=== PATIENT | male | born 1955 | race Caucasian/White ===

== ENCOUNTER 2024-03-06 16:45 | Inpatient (IN) | payer MEDICARE, BC, SELFPAY ==
[2024-03-06] VITALS (8 sets, daily range): BP systolic 126–153; BP diastolic 75–93; BMI 37.6; BMI 34.6
--- NOTE | 2024-03-06 13:13 | ED.GENMED ---
History of Present Illness
<Sinai Campos MD, Resident - Last Filed: 03/07/24 19:39>
General
Chief Complaint: Headache
Source: patient and spouse
Exam Limitations: none
Time Seen by Provider: 03/06/24 12:29
Nursing documentation reviewed up to this point in time: agreed with
History of Present Illness
History of Present Illness:
68-year-old male with history of type II diabetes, hypercholesterolemia, hypertension, hypothyroidism presented today with left-sided headache x 3 days. 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
does often with no issues. He reports feeling nauseous and lightheaded unsteadiness and breaking out in a cold sweat. He then went to sit down for risk of fall and then had a nap. He woke up with a unilateral, 3/10 constant, dull ache in the left
temporal area/behind left eye. Headache has remained unchanged since onset.
No prior history or similar symptoms. He reports mild fatigue but denies neck pain/stiffness, visual changes, photophobia/phonophobia, fever, confusion, fall, loss of consciousness, trauma, chest pain, palpitations, shortness of breath, or urinary
symptoms.
Review of Systems
<Sinai Campos MD, Resident - Last Filed: 03/07/24 19:39>
Review of Systems
Constitutional: Reports fatigue; Denies fever, night sweats or chills
EENT: Reports other (no sialorrhea); Denies tearing or runny nose
Respiratory: Denies trouble breathing
Cardiac: Denies chest pain, diaphoresis, palpitations or syncope
ABD/GI: Denies abdominal pain, nausea or vomiting
: Denies dysuria, flank pain or difficulty voiding
Neurological: Reports headache; Denies dizzy, weakness or numbness
Phy Exam
<Sinai Campos MD, Resident - Last Filed: 03/07/24 19:39>
General Physical Exam
General Presentation: well appearing and no apparent distress
General age: appears stated age
General Skin: warm and dry
General Habitus: normal
General Mental: alert
ENT Exam
ENT Exam: EOMI, pharynx normal, normocephalic and other (No temporal or scalp tenderness)
Eye Exam
Eye Exam: PERRL, EOMI and conjunctiva normal
Cardiovascular Exam
Cardiovascular Exam: regular rate/rhythm, no edema, no gallop and no murmur
Pulmonary Exam
Pulmonary Exam: lungs clear, no respiratory distress, no rales, no crackles, no rhonchi and no wheezing
Gastrointestinal Exam
Gastrointestinal Exam: normal bowel sounds, non tender, soft, non distended and no cva tenderness
Neurological Exam
Neurological Exam: alert, oriented x3, no motor deficits, normal reflexs, no sensory deficits, speech normal and cerebellum intact
Course
<Sinai Campos MD, Resident - Last Filed: 03/07/24 19:39>
Orders/Labs/Results
Orders:
Orders
03/06/24 13:37
CT Head W/o Iv Contrast Urgent
Comment:
Reason For Exam: headache, new
03/06/24 14:49
MR Brain Without Contrast Urgent
Comment:
Reason For Exam: [place], abnormal CT
Recent pill cam endoscopy?: No
03/06/24 14:51
[place] [facility] [[place] [facility]] Urgent
Comment:
Reason For Exam: dizziness, abnormal MRV
Recent pill cam endoscopy?: No
03/06/24 Dinner
Cholesterol Lowering
At Your Request: Full Participation
Does patient need a safe tray?: No
03/06/24 15:04
Cardiac Monitoring- Treatment ONCE
03/06/24 15:05
Electrocardiogram (*1) Stat
Reason for Study: Other
Other Reason for Exam: neuro symptoms
EKG- Treatment ONCE
03/06/24 15:11
Aspirin 325 mg PO NOW STA
03/06/24 15:26
Complete Blood Count/With Diff Urgent
Erythrocyte Sed Rate Urgent
Comment: ADD ON
Glycohemoglobin (HgbA1c) Urgent
03/06/24 15:57
Clopidogrel Bisulfate [Plavix] 150 mg PO NOW STA
03/06/24 16:22
C-Reactive Protein Urgent
Comment: ADD ON
Comprehensive Metabolic Panel Urgent
Troponin I Urgent
03/06/24 16:39
Admit/Transfer Patient As Directed
Co-Sign Provider:
Level of Care: Inpatient admission
Assign to:: Telemetry
Physician / Group: Shilpa
Diagnosis: Subacute strokes
Reason for Telemetry: CVA/TIA
Date to Stop Telemetry: 03/09/24
Time to Stop Telemetry: 11:00
Reason for Hospitalization: Stroke work up, neurology consult
Expected length of stay greater than two midnights?: Yes
ELOS- Estimated Length of Stay in days: 2
I certify the patient meets the requirements for IP care: Yes
PRN Pain Medication Management As Directed
May give lesser potent ordered pain med per pt: Yes
preference::
Protocol:: Medication orders for pain may be administered in a
manner that supports deferring to patient preference
when the pt is:
- Requesting an ordered lesser potent pain medication.
Least to most potent pain medications are defined
as: acetaminophen < NSAID < tramadol < opioids
(morphine, oxycodone, hydromorphone).
- Requesting a lesser dose of the same medication IF
ORDERED.
- Requesting a less intrusive route of administration
if both routes are prescribed by the provider (PO <
IV).
03/06/24 16:40
Code Status As Directed
Resuscitation Status: Full Code
03/06/24 18:25
Acetaminophen [Tylenol] 650 mg PO Q6HPRN PRN
03/06/24 18:25
NEUROLOGY CONSULT Routine
Consulting Provider: Ye Dwyer
Was physician already notified: Yes
Activity As Directed
Activity Level: With Assistance
OT Consult [Ot Eval And Treat] Routine
Physical Therapy Consult [Pt Eval And Treat] Routine
Activity Level: With Assistance
DX Deep Vein Thrombosis Video Routine
03/09/24 11:00
DC Protocol for Telemetry ONCE
Abnormal Lab Results
03/06/24
15:26
Monocytes % 10.6 H %
(1.7-9.3)
03/06/24 15:26
03/06/24 16:22
Vital Signs
Initial and Last Documented VS:
Initial Vital Signs
Temp Pulse Resp BP Pulse Ox
98.2 F 74 20 153/88 98
03/06/24 11:31 03/06/24 11:31 03/06/24 11:31 03/06/24 11:31 03/06/24 11:31
Last Documented Vital Signs
Temp Pulse Resp BP Pulse Ox
98.1 F 60 16 125/75 96
03/07/24 07:00 03/07/24 07:00 03/07/24 07:00 03/07/24 07:00 03/07/24 08:00
<Scar Escobar, DO - Last Filed: 03/07/24 08:56>
Orders/Labs/Results
Orders:
Orders
03/06/24 13:37
CT Head W/o Iv Contrast Urgent
Comment:
Reason For Exam: headache, new
03/06/24 14:49
MR Brain Without Contrast Urgent
Comment:
Reason For Exam: [place], abnormal CT
Recent pill cam endoscopy?: No
03/06/24 14:51
[place] [facility] [[place] [facility] Urgent
Comment:
Reason For Exam: dizziness, abnormal MRV
Recent pill cam endoscopy?: No
03/06/24 Dinner
Cholesterol Lowering
At Your Request: Full Participation
Does patient need a safe tray?: No
03/06/24 15:04
Cardiac Monitoring- Treatment ONCE
03/06/24 15:05
Electrocardiogram (*1) Stat
Reason for Study: Other
Other Reason for Exam: neuro symptoms
EKG- Treatment ONCE
03/06/24 15:11
Aspirin 325 mg PO NOW STA
03/06/24 15:26
Complete Blood Count/With Diff Urgent
Erythrocyte Sed Rate Urgent
Comment: ADD ON
Glycohemoglobin (HgbA1c) Urgent
03/06/24 15:57
Clopidogrel Bisulfate [Plavix] 150 mg PO NOW STA
03/06/24 16:22
C-Reactive Protein Urgent
Comment: ADD ON
Comprehensive Metabolic Panel Urgent
Troponin I Urgent
03/06/24 16:39
Admit/Transfer Patient As Directed
Co-Sign Provider:
Level of Care: Inpatient admission
Assign to:: Telemetry
Physician / Group: Shilpa
Diagnosis: Subacute strokes
Reason for Telemetry: CVA/TIA
Date to Stop Telemetry: 03/09/24
Time to Stop Telemetry: 11:00
Reason for Hospitalization: Stroke work up, neurology consult
Expected length of stay greater than two midnights?: Yes
ELOS- Estimated Length of Stay in days: 2
I certify the patient meets the requirements for IP care: Yes
PRN Pain Medication Management As Directed
May give lesser potent ordered pain med per pt: Yes
preference::
Protocol:: Medication orders for pain may be administered in a
manner that supports deferring to patient preference
when the pt is:
- Requesting an ordered lesser potent pain medication.
Least to most potent pain medications are defined
as: acetaminophen < NSAID < tramadol < opioids
(morphine, oxycodone, hydromorphone).
- Requesting a lesser dose of the same medication IF
ORDERED.
- Requesting a less intrusive route of administration
if both routes are prescribed by the provider (PO <
IV).
03/06/24 16:40
Code Status As Directed
Resuscitation Status: Full Code
03/06/24 18:25
Acetaminophen [Tylenol] 650 mg PO Q6HPRN PRN
03/06/24 18:25
NEUROLOGY CONSULT Routine
Consulting Provider: Ye Dwyer
Was physician already notified: Yes
Activity As Directed
Activity Level: With Assistance
OT Consult [Ot Eval And Treat] Routine
Physical Therapy Consult [Pt Eval And Treat] Routine
Activity Level: With Assistance
DX Deep Vein Thrombosis Video Routine
03/09/24 11:00
DC Protocol for Telemetry ONCE
Abnormal Lab Results
03/06/24
15:26
Monocytes % 10.6 H %
(1.7-9.3)
03/06/24 15:26
03/06/24 16:22
Vital Signs
Initial and Last Documented VS:
Initial Vital Signs
Temp Pulse Resp BP Pulse Ox
98.2 F 74 20 153/88 98
03/06/24 11:31 03/06/24 11:31 03/06/24 11:31 03/06/24 11:31 03/06/24 11:31
Last Documented Vital Signs
Temp Pulse Resp BP Pulse Ox
98.1 F 60 16 125/75 96
03/07/24 07:00 03/07/24 07:00 03/07/24 07:00 03/07/24 07:00 03/07/24 08:00
<Sinai Campos MD, Resident - Last Filed: 03/07/24 19:39>
MDM/Problems Addressed
Differential Diagnosis Includes:
Intracranial hemorrhage, CVA, intracranial mass, temporal arteritis, migraine, cluster headache, pseudotumor cerebri
MDM/Problems Addressed:
Well-appearing patient in no apparent distress. Unlikely meningitis given absence of meningeal signs. Temporal arteritis is unlikely given negative physical exam and demographic of patient.
It is reasonable to get CT head w/o contrast, to evaluate for intracranial hemorrhage, possible intracranial mass, pseudotumor cerebri.
Update:
Findings most likely representing two subacute nonhemorrhagic infarcts in the left cerebellum. Will give aspirin 325mg. Will reasonably need further imaging. Will admit to hospitalist service.
<Scar Escobar DO - Last Filed: 03/07/24 08:56>
*Radiology
Radiology exam reviewed: preliminary read by ED provider (Hypodensity noted in the cerebellum)
*Pulse Oximetry
Patient hypoxic: no
*EKG
Interpreted by ED Provider?: Yes
Interpretation: normal
Rate: normal
Rhythm: sinus
[place]: normal axis
Ischemia: no ischemia
*Storekeeper Steward Interpretation
Rate: normal
Interpretation: normal
Rhythm: sinus
*Critical Care Note
Total Time (30-74mins, 75-104mins- exclusive of procedures): 35 minutes
Data Reviewed
Source: patient and family
Prescriptions/Medications Considered But Not Given:
Consider TNK but patient is several days into symptoms
<Scar Escobar DO - Last Filed: 03/07/24 08:56>
Patient Management
Discussion with other providers: Sales Lead (Neurology) and Radiologist
ED Attending Note
<Sinai Campos MD, Resident - Last Filed: 03/07/24 19:39>
-
Portions of this chart may have been created with voice recognition software.� Occasional wrong word or��sound alike� substitutions may have occurred due to the inherent limitations of voice recognition software.
<Scar Escobar DO - Last Filed: 03/07/24 08:56>
ED Attending Note
Patient seen and examined by attending physician: Yes
I performed a history and physical exam of patient and discussed management with resident, I reviewed resident's note and agree with documented findings and plan of care.: Yes
ED Attending Note:
68-year-old male who presents with L sided GOLDSTEIN. Patient admits that on Saturday while standing would he had an episode where he developed nausea, unsteadiness and dizziness. The symptoms came on relatively suddenly. Exam: Awake and alert, normal
[id number], no pronator drift, normal motor strength bilaterally, cranial nerves intact. Assessment and plan: CT reviewed by me shows hypodensity in the cerebellum that radiology believes is CVA. They do recommend MR and MRA. Patient also
seen by neurology. Advises Plavix and aspirin
Discharge Plan
Departure
Patient Disposition: Admit
Date of Disposition: 03/06/24
Time of Disposition: 16:41
Admit to: Telemetry
Presentation/result/management discussed w/ accepting MD/DO: Hospitalist
Discharge Problem:
Acute CVA (cerebrovascular accident)
Interventions
Interventions:
*Risk Screen - Suicide Last Done: 03/06/24 19:23
*General Assessment Last Done: 03/06/24 11:31
*Neglect/Abuse Screening Last Done: 03/06/24 18:31
*ED COVID-19 Vaccine History Last Done: 03/06/24 19:23
*Nursing Disposition Last Done: 03/06/24 18:31
ED- Neurological Assessment Last Done: 03/06/24 17:38
Discharge Date and Time
Discharge Date/Time: 03/06/24 18:34
[2024-03-06 15:37] LABS: % Basophils 1.2 % (0-2); % Eosinophils 3.5 % (0-6); % Immature Granulocytes 0.5 % (0-0.5); % Lymphocytes 33.2 % (20.5-51.1); % Monocytes 10.6 % (1.7-9.3); Absolute Basophils 0.1 10^3/uL (0-0.2); Absolute Eosinophils 0.2 10^3/uL (0-0.7); Absolute Lymphocytes 1.9 10^3/uL (1.2-3.4); Absolute Monocytes 0.6 10^3/uL (0.1-0.6); Absolute Neutrophils 2.9 10^3/uL (1.4-6.5); Hemoglobin 14.8 g/dL (13.0-18.0); Mean Corp Hgb Conc. 34.4 g/dL (33.0-37.0); Mean Corpuscular Hgb 30.9 pg (27.0-31.0); Mean Corpuscular Volume 89.8 fL (80.0-94.0); Mean Platelet Volume 9.4 fL (7.4-10.4); Nucleated Red Blood Cells % 0 % (-); Platelet Count 226 10^3/uL (130-400); Red Blood Cell Count 4.79 10^6/uL (4.70-6.10); Red Cell Dist. Width 12.4 % (11.5-14.5); White Blood Cell Count 5.7 10^3/uL (4.8-10.8)
--- NOTE | 2024-03-06 15:54 | CON.NEURO4 ---
Consultation - Neurology 4
-
CONSULTING PHYSICIAN: Ye Dwyer MD(Neurology)
REFERRING PHYSICIAN: Hospitalist
DICTATED BY: Ye Dwyer MD
DATE/TIME OF REQUEST: 03/06/2024
DATE/TIME OF CONSULTATION: 03/06/2024 1600
Reason for Consultation: Headaches
History of Present Illness:
This is a (68) year old (right) handed (male/ who has presented to the hospital with (chief complaint) of left frontal headaches. he gives a h/o HTN, DM who had been in his USOH till Saturday. 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
place, he became dizzy nauseated with lethargy and had to lie down. When he woke up he felt unsteady and had a dull headaches. Not relieved by NSAIDs. He ignored his symptoms initially. symptoms persisted he called his family doctor who advised
him to go to the ER.. No difficulty standing walking. No double vision slurred speech weakness of face or extremities. No LOC or seizures. No falls or CHI
At the time of my exam he is asymptomatic except for left taoist headaches
Past Medical History: HTN, DM, Hypothyroidism
Surgical History: Knee surgery
Family History: NC
Social History: lives at home. Does not smoke or use alcohol
Allergies: NKA
Home Medications: Addendum
Review of Symptoms:
Patient denies any fever, headache, chest pain, shortness of breath, GI or symptoms.
�Per the HPI.�All systems are reviewed negative except above.
Vital Signs:
The patient has a .Temp 36.8 C Pulse74 Resp20 BP153/88 Pulse Ox98
Physical Exam:
The patient is afebrile, heart sounds S1 and S2 are (regular / irregular), and chest is clear to auscultation bilaterally.
- If not clear, describe.
NIH Stroke Scale (if applicable):
I performed the NIH stroke scale on the patient. The patient scored ( 0 ) points on the NIHSS
Neurologic Examination:
The patient is awake, alert and oriented x 3. (He is able to follow commands and answer questions appropriately. There is no aphasia or dysarthria. On cranial nerve assessment, pupils are 3 mm bilateral, round and reactive to light and
accommodation. Visual aguirre are full. Extraocular movements are intact. Facial sensations are intact and bilaterally symmetrical, there is no facial asymmetry. Hearing is intact bilaterally to normal conversation volume. Tongue palate and uvula
are midline. Sternocleidomastoid strengths are full bilaterally. Motor strengths are 5/5 bilateral upper and lower extremities on medical research [place] scale. There is no drift or involuntary movement noted. Deep tendon reflexes are 2+ bilateral
upper and lower extremities and Babinski is absent bilaterally. Sensations of pain, touch, temperature and vibration are intact and bilaterally symmetrical. There was no extinction noted on double simultaneous stimulation. Coordination is intact by
finger to nose bilaterally.
Rombergs Negative GAit WNL
Lab Results: Addendum
Neuro Imaging:CT head: Left Cerebellar infarction
Impression:
(Mr. JAMEEL APPLE is a 68 year old M who has presented to the hospital with (symptoms/chief complaint).
Differentials for the patient's presentation include:
1. LEFT Cerebellar CVA
Patient has the following risk factors for their symptoms:
IV Tenecteplase/IAT candidacy
Recommendations:
1. Aspirin 81
2. Plavix 150 followed by maintenance of 75x 3 weeks
3. Crestor
4. PT/OT
5. MRI/MRA/MRV head
6. US carotids
7. Echocardiogram
Discussed patient care with: ER/Hospitalist/Family
Allergies
-
Allergies
Allergy/AdvReac Type Severity Reaction Status Date / Time
No Known Allergies Allergy Unverified 03/06/24 11:30
Vital Signs and Labs
-
Vital Signs and Labs:
Vital Signs
Temp Pulse Resp BP Pulse Ox
36.8 C 74 20 153/88 98
03/06/24 11:31 03/06/24 11:31 03/06/24 11:31 03/06/24 11:31 03/06/24 11:31
Lab Results
03/06/24 15:26
Sodium Cancelled 03/06/24 15:26
Potassium Cancelled 03/06/24 15:26
BUN Cancelled 03/06/24 15:26
Glucose Cancelled 03/06/24 15:26
Calcium Cancelled 03/06/24 15:26
[2024-03-06] MEDS: PLAVIX 150 MG PO (16:07)
[2024-03-06] MEDS: ASPIRIN 325 MG PO (16:07)
--- NOTE | 2024-03-06 16:43 | HPS.HSE ---
Family Physician
-
Family Physician: Paul Lowe
Chief Complaint
-
Headache
History of Present Illness
68-year-old male who came into the emergency room today for evaluation of left-sided headache that started 3 days ago.
Symptoms started on Saturday while he was working in the [employer] nausea and lightheadedness, unsteadiness, cold sweat. He was fearful of falling and went to sit down and took a nap. When he woke up he had a left-sided constant dull headache
in the orthodoxy area behind the eye. Has been constant since then.
Transient gait ataxia on Saturday but none since.
Denies proximal muscle pain or weakness. Denies jaw pain with mastication. Denies vision changes. Denies nausea or vomiting. Normally does not get headaches.
Medical History
Past Medical History
Past Medical History: Reports Other
Additional Past Medical History:
Pre-diabetes
Hyperlipidemia
Essential hypertension
Hypothyroidism
Past Surgical History: Reports Other
Additional Past Surgical History:
Left hip replacement
Bilateral total knee replacement
Social History
Tobacco: Non-smoker
Alcohol: Occasional
Drug: None
Personal:
Living: With Family
Family History
Family History: Not pertinent
Allergies / Home Medications
Allergies reflects when Allergies were last updated in [facility].
Home Medications with original date entered in [facility]
Allergy/Medication List:
Allergies
Allergy/AdvReac Type Severity Reaction Status Date / Time
No Known Allergies Allergy Unverified 03/06/24 11:30
Home Medications
Multi Vitamin 1 tab PO DAILY 03/06/24
amiodarone 100 mg tablet 100 mg PO DAILY 03/06/24
amlodipine 10 mg tablet 10 mg PO DAILY 03/06/24
aspirin 81 mg tablet 81 mg PO DAILY 03/06/24
levothyroxine 112 mcg tablet 112 mcg PO DAILY 03/06/24
losartan 100 mg-hydrochlorothiazide 25 mg tablet 1 tab PO DAILY 03/06/24
metformin 500 mg tablet 500 mg PO DAILY 03/06/24
omega-3 fatty acids 500 mg capsule 500 mg PO BID 03/06/24
rosuvastatin 20 mg tablet 20 mg PO DAILY 03/06/24
Review of Systems
-
History Source: Patient
A 12 point ROS was completed and negative except as noted: Yes
Physical Exam
Vital Signs
Vital Signs
Temp Pulse Resp BP Pulse Ox
98.2 F 57 18 144/93 98
03/06/24 11:31 03/06/24 16:07 03/06/24 16:07 03/06/24 16:07 03/06/24 11:31
Physical Exam
General: Well Developed, Well Nourished, No Apparent Distress and Comfortable
HEENT: NormoCephalic, Anicteric and Moist mucous membranes
Respiratory: Clear
Cardiac: S1/S2 and Regular Rhythm
Breast: Deferred by me
GI: Soft, Non Tender and Non Distended
Genito-urinary: Deferred by me
Musculoskeletal: No Clubbing, No Cyanosis and No Edema
Skin: Warm and Dry
Neuro: AO x 3
Hematologic/Lymphatic: No Lymphadenopathy
Psych: Calm
Laboratory Results
-
03/06/24 15:26
Laboratory Results
Total Bilirubin Cancelled 03/06/24 15:26
AST Cancelled 03/06/24 15:26
ALT Cancelled 03/06/24 15:26
Alkaline Phosphatase Cancelled 03/06/24 15:26
Troponin I Cancelled 03/06/24 15:26
Impression/Plan
-
Acute/subacute left cerebellar strokes -2 regions of restricted diffusion noted on MRI brain compatible with acute to subacute infarcts. Cytotoxic edema noted. Admit to telemetry. Consult neurology. Continue rosuvastatin. PT/OT.
Concern for embolic strokes given hx of atrial fibrillation. Has not been on anticoagulation, only low dose aspirin.
Spoke with neurology service. Will start Eliquis. Discontinue antiplatelet therapy.
Headache -over the left orthodoxy. Constant since Saturday. Atypical for temporal arteritis presentation. Check ESR, CRP. Has no other signs or symptoms of vasculitis, or PMR.
Essential hypertension -neurology okay with resuming antihypertensives.
Atrial fibrillation -likely paroxysmal. Patient wears an Apple watch day & night, has not noted any events. Had cardioversion several years ago. Has been on Amiodarone and low dose aspirin, no anticoagulation.
Spoke with his assistant to the ceo office (Dr. Mejia Garcia, ) and decision made to initiate Eliquis, stop aspirin, in light of presentation with stroke. Follow-up in the office next week for outpatient echocardiogram.
Hyperlipidemia -continue rosuvastatin.
Impaired fasting glucose -check hemoglobin A1c. Continue metformin.
Hypothyroidism -continue levothyroxine.
Obesity due to excess calories
Full code
Dispo - potential discharge tomorrow if stable.
updated at the bedside.
[2024-03-06 16:59] LABS: ALT (SGPT) 26 U/L (0-50); AST (SGOT) 31 U/L (17-59); Albumin 4.6 g/dl (3.5-5.0); Alkaline Phosphatase 51 U/L (38-126); Blood Urea Nitrogen 20 mg/dl (9-20); Calcium 9.8 mg/dl (8.4-10.2); Carbon Dioxide 28 mmol/L (22-30); Chloride 98 mmol/L (98-107); Glucose 95 mg/dl (70-99); Potassium 4.3 mmol/L (3.5-5.1); Sodium 140 mmol/L (135-145); Total Bilirubin 0.8 mg/dl (0.2-1.3); Total Protein 7.2 g/dl (6.3-8.2); eGFR > 60.00
[2024-03-06 17:00] LABS: Troponin I < 0.012 ng/ml
[2024-03-06 18:26] LABS: Erythrocyte Sed Rate 14 mm/hour (0-20)
--- NOTE | 2024-03-06 19:30 | PTCARENOTE ---
Pt. admitted through E.D., AAO x 3, vs stable, NIH 0, NSR with first degree AV block, call johnston within reach.
[2024-03-06] MEDS: ELIQUIS 5 MG PO (19:58)
[2024-03-06 20:17] LABS: C-Reactive Protein < 5.00 mg/L (0.0-10.00)
[2024-03-07 03:00] VITALS: BP 132/90
[2024-03-07] MEDS: SYNTHROID 112 MCG PO (05:44)
[2024-03-07 07:00] VITALS: BP 125/75
[2024-03-07] MEDS: GLUCOPHAGE 500 MG PO (08:18)
[2024-03-07] MEDS: NORVASC 10 MG PO (08:18)
[2024-03-07] MEDS: CRESTOR 20 MG PO (08:18)
[2024-03-07] MEDS: HYZAAR 100-25 TABLET 1 TAB PO (08:18)
[2024-03-07] MEDS: ELIQUIS 5 MG PO (08:18)
[2024-03-07] MEDS: PACERONE 100 MG PO (08:18)
[2024-03-07 09:09] VITALS: BMI 34.6
[2024-03-07 09:52] VITALS: BP 123/68; BP_SYST 96; PULSE 77
[2024-03-07 10:01] LABS: Glycohemoglobin (HgbA1c) 5.5 % (4.0-5.6)
--- NOTE | 2024-03-07 10:04 | W.PN.HOSP.TC ---
Today's Communication/Plan
-
Discharge
Assessment / Plan
Assessment / Plan
Gen-AAOx3, NAD
HEENT-NC, AT, anicteric, clear oral mm
Neck-supple
CV-reg, no M, +S1/S2
Lungs-clear B/L
Abd-soft, NT, ND
Ext-no edema
Musculoskeletal-no cyanosis, clubbing
Skin-warm and dry
Neuro-grossly non-focal
Psych-calm, cooperative
Acute/subacute left cerebellar strokes -2 regions of restricted diffusion noted on MRI brain compatible with acute to subacute infarcts. Cytotoxic edema noted. Continue rosuvastatin. PT/OT.
Concern for embolic strokes given hx of atrial fibrillation. Has not been on anticoagulation, only low dose aspirin.
Now on Eliquis. Aspirin discontinued.
Headache -over the left [place]. Constant since Saturday. Atypical for temporal arteritis presentation. Inflammatory markers are normal.
Essential hypertension -neurology okay with resuming antihypertensives.
Atrial fibrillation -likely paroxysmal. Patient wears an Apple watch day & night, has not noted any events. Had cardioversion several years ago. Has been on Amiodarone and low dose aspirin, no anticoagulation.
Spoke with his physiotherapy practice manager office (Dr. Mejia Garcia, ) and decision made to initiate Eliquis, stop aspirin, in light of presentation with stroke. Follow-up in the office next week for outpatient echocardiogram.
Hyperlipidemia -continue rosuvastatin.
Impaired fasting glucose -check hemoglobin A1c. Continue metformin.
Hypothyroidism -continue levothyroxine.
Obesity due to excess calories
Full code
Dispo -medically stable for discharge. Outpatient follow-up with PCP, neurology, cardiology. Outpatient carotid ultrasound, echocardiogram this week. Discussed with patient and . 32 minutes spent in discharge process.
32 minutes spent in discharge process.
updated at the bedside.
Anticipated Discharge: Today
Subjective/Interval History
-
Date of Service: March 07, 2024
Patient seen and examined. No complaints.
Objective Data
-
Vital Signs:
Vital Signs
Temp Pulse Resp BP Pulse Ox
98.1 F 60 16 125/75 96
03/07/24 07:00 03/07/24 07:00 03/07/24 07:00 03/07/24 07:00 03/07/24 08:00
I&O
03/06/24 03/07/24 03/08/24
06:59 06:59 06:59
Intake Total 240 / 240
Balance 240 / 240
Review of Systems
-
History Source: Patient
All other systems: Reviewed and negative
--- NOTE | 2024-03-07 10:09 | W.DS.TRANS ---
DC Summary - Environmental Services Worker
-
Discharge Instructions:
Discharge Diagnosis/Procedures Acute cerebellar strokes
Diet Low Cholesterol,Low Fat,2 Gram Sodium
Activity As tolerated
Driving Restrictions As prior to admission
Bathing Restrictions None
Instructions:
Stand-Alone Forms:
Changes to Home Medications: Yes
Discharge Medications:
DC Medications w/original date entered in [facility]
Multi Vitamin 1 tab PO DAILY 03/06/24
amiodarone 100 mg tablet 100 mg PO DAILY 03/06/24
amlodipine 10 mg tablet 10 mg PO DAILY 03/06/24
levothyroxine 112 mcg tablet 112 mcg PO DAILY 03/06/24
losartan 100 mg-hydrochlorothiazide 25 mg tablet 1 tab PO DAILY 03/06/24
metformin 500 mg tablet 500 mg PO DAILY 03/06/24
omega-3 fatty acids 500 mg capsule 500 mg PO BID 03/06/24
rosuvastatin 20 mg tablet 20 mg PO DAILY 03/06/24
apixaban 5 mg tablet (Eliquis) 5 mg PO BID #60 tabs 03/07/24
Home Medication Changes
Stop aspirin.
Pending Results: No
--- NOTE | 2024-03-07 10:10 | W.PN.NEURO.1 ---
Today's Communication / Plan
-
Patient may be discharged home. He will current medications. He will add Plavix 75 mg. He may resume his usual activities. Follow-up with cardiology with regards to echocardiogram. Outpatient carotid studies
Neuro Assessment/Plan
Assessment
68-year-old male with history of hypertension diabetes who suffered a left cerebellar infarct. He has no neurological deficits
Plan
Aspirin 81
Plavix 75
Strict blood pressure control
Strict glucose management
Avoid ladders
No driving for 1 week
Subjective/Objective
Subjective Data
Date of Service: March 07, 2024
Patient is doing well and is independent in all activities of daily living no complaints
Objective Data
Vital Signs
Temp Pulse Resp BP Pulse Ox
36.7 C 60 16 125/75 96
03/07/24 07:00 03/07/24 07:00 03/07/24 07:00 03/07/24 07:00 03/07/24 08:00
Lab Results
03/06/24 15:26
03/06/24 16:22
Sodium 140 mmol/L (135-145) 03/06/24 16:22
Potassium 4.3 mmol/L (3.5-5.1) 03/06/24 16:22
BUN 20 mg/dl (9-20) 03/06/24 16:22
Glucose 95 mg/dl (70-99) 03/06/24 16:22
Calcium 9.8 mg/dl (8.4-10.2) 03/06/24 16:22
Patient Allergies
No Known Allergies Allergy (Unverified 03/06/24 11:30)
Physical Exam
-
General: Well Developed and Well Nourished
Eyes: Able to visualize OU
HEENT: Normocephalic and Atraumatic
Neck: Full Range of Motion
Psych: Unremarkable
Extended Neurological Exam
Mood & Affect: Mood Unremarkable and Affect Unremarkable
Attention Span & Concentration: Awake, Alert, Interactive, No Difficulty with 2 Step Request and No Problem with Right/Left Differentiation
Memory: Able to Recall, Recalls Objects and Recalls Short Term
Tremor: Hand Tremor Absent and Head Tremor Absent
Involuntary Movement: None
Speech: Quality Unremarkable, Quantity Unremarkable and Rate of Production Unremarkable
Cranial Nerve II: Left Eye: Pupillary Reactivity Unremarkable, Pupillary Size Unremarkable and Visual Her Grossly Intact
Cranial Nerve II: Right Eye: Pupillary Reactivity Unremarkable, Pupillary Size Unremarkable and Visual Her Grossly Intact
Cranial Nerves III, IV, : Extraocular Movement: Extraocular Movement Full in all Directions
Cranial Nerve V: Facial Sensation: Intact to Light Touch
Cranial Nerve VIII: Hearing: Unremarkable Hearing to Normal Conversational Volume
Cranial Nerves IX, X: Palate Movement: Palate Elevation Symmetric
Cranial Nerve XI: Shoulder Shrug: Unremarkable
Cranial Nerve XII: Tongue Protusion: Midline
Muscle Strength, Overall: Full Throughout
Muscle Bulk & Tone: Bulk Unremarkable and Tone Unremarkable
Pronator Drift: No Drift in Upper Extremities and No Drift in Lower Extremities
Deep Tendon Reflexes: Unremarkable Throughout
Cold Sensation: Unremarkable
Vibration Sensation: Unremarkable
Touch Sensation: Unremarkable
Coordination: [id number] Testing Unremarkable and Reaches for Objects without Difficulty
Babinski Sign: Absent Bilaterally
Gait & Station: Unremarkable Arm Swing and Up from Seated Without Problem
Modified Kelso Score (MRS)
-
Modified Kaya Scale (mRS): No significant disability. Able to carry out usual activities.
Score: 1
Data Reviewed
-
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
MRA Head: Image Reviewed (Left vertebral artery insufficiency)
--- NOTE | 2024-03-07 10:12 | CM ---
Patient seen bedside with , initial assessment completed. Patient resides with in a single story home, three steps to enter. Patient reports VN several years ago after knee replacement, denies SNF history. Patient reports having a walker
and cane at home after previously procedures, denies use of DME. Patient has a CPAP through [facility]. Patient confirms PCP Paul Lowe, pharmacy [facility] [place], confirms prescription coverage. Patient likely for discharge today, will
watch for PT evaluations. CM will continue to follow for all discharge planning needs.
Plan; home no needs likely.
== END 2024-03-07 10:46 | disposition home or self-care (01) | DRG 64 ==
LOC: 4 WEST ACU 16:45
PROVIDERS: ADMITTING PHYSICIAN Hospitalist; CONSULT PHYSICIAN Psychiatry & Neurology Neurology; EMERGENCY PHYSICIAN Emergency Medicine; FAMILY PHYSICIAN Family Medicine
DX: I63.442 Cerebral infarction due to embolism of left cerebellar artery (principal); G93.6 Cerebral edema; E03.9 Hypothyroidism, unspecified; E11.9 Type 2 diabetes mellitus without complications; E66.09 Other obesity due to excess calories; Z68.37 Body mass index [BMI] 37.0-37.9, adult; I10 Essential (primary) hypertension; R26.0 Ataxic gait; R29.700 NIHSS score 0; E78.00 Pure hypercholesterolemia, unspecified; I48.0 Paroxysmal atrial fibrillation; Z96.642 Presence of left artificial hip joint; Z96.653 Presence of artificial knee joint, bilateral; Z79.82 Long term (current) use of aspirin; Z79.84 Long term (current) use of oral hypoglycemic drugs; Z79.890 Hormone replacement therapy; Z79.899 Other long term (current) drug therapy
CPT/HCPCS: 70450; 70544; 70551; 80053; 83036; 84484; 85025; 85652; 86140; 93005; 97161; 99291

== ENCOUNTER → 2025-03-01 15:12 | Outpatient (REF) | payer MEDICARE, BC, SELFPAY | LOC: MRI 3T 15:12 | PROVIDERS: ATTENDING PHYSICIAN Psychiatry & Neurology Neurology; FAMILY PHYSICIAN Family Medicine | DX: R43.0 Anosmia (principal) | CPT/HCPCS: 70553; A9575 ==